=== PATIENT | male | born 1975 | race Caucasian/White ===

== ENCOUNTER 2025-01-20 13:48 | Emergency (ER) | payer MEDICAID ==
[~2025-01-20] VITALS: Ht 167.6 cm; Wt 81.0 kg
[2025-01-20 14:02] VITALS: O2SAT 96
[2025-01-20 16:53] LABS: CLARITY URINE CLEAR (CLEAR); COLOR URINE YELLOW (YELLOW); GLUCOSE URINE NEGATIVE (NEGATIVE); KETONES URINE TRACE (NEGATIVE); LEUKOCYTE ESTERASE URINE NEGATIVE (NEGATIVE); NITRITE URINE NEGATIVE (NEGATIVE); OCCULT BLOOD URINE 2+ (NEGATIVE); PH URINE 5.5 (4.5-8.0); PROTEIN URINE TRACE (NEGATIVE); SPECIFIC GRAVITY URINE 1.024 (1.005-1.030); UROBILINOGEN URINE 0.2 E.U./dL (0.2-1.0)
[2025-01-20 17:14] LABS: BACTERIA URINE TRACE; SQUAMOUS EPITHELIAL CELL URINE 1+ /lpf (RARE/1+); WBC URINE 0-2 /hpf (0-2)
[2025-01-20 18:42] LABS: BASOPHILS % 0.6 % (0.0-2.0); EOSINOPHILS % 0.8 % (0.0-5.0); HEMATOCRIT. 44.3 % (42.0-52.0); HEMOGLOBIN. 14.9 g/dL (14.0-18.0); LYMPHOCYTES % 17.3 % (20.0-50.0); MEAN PLATELET VOLUME 7.7 fl (7.4-10.4); MONOCYTES % 6.3 % (2.0-8.0); NEUTROPHILS % 75.0 % (40.0-76.0); PLATELET 361 x1000/uL (130-400); RED BLOOD CELL COUNT 5.22 mill/uL (4.7-6.1); RED CELL DISTRIBUTION WIDTH 14.6 % (11.6-14.6)
[2025-01-20 18:57] LABS: CREATININE 0.9 mg/dL (0.6-1.3)
[2025-01-20 18:58] LABS: TROPONIN I HIGH SENSITIVITY 4 ng/L (3.0-53); UREA NITROGEN BLOOD 9 mg/dL (9-23)
[2025-01-20 18:59] LABS: ASPARTATE AMINOTRANSFERASE 27 IU/L (<34)
[2025-01-20 19:00] LABS: BILIRUBIN DIRECT 0.1 mg/dL (<=3.0); BILIRUBIN TOTAL 0.5 mg/dL (0.1-1.0); PROTEIN TOTAL 7.7 g/dL (6.0-8.3)
[2025-01-20] MEDS ORDERED: CEPH500C2 MT (20:59)
[2025-01-20 21:05] VITALS: BP 134/86; PULSE 79; RESP 14; TEMP 37.2; O2SAT 100
== END 2025-01-20 21:11 | disposition home or self-care (01) ==
LOC: ER 13:48
DX: N39.0 Urinary tract infection, site not specified (principal); I10 Essential (primary) hypertension; R51.9 Headache, unspecified; I49.3 Ventricular premature depolarization
CPT/HCPCS: 36415; 74176; 80048; 80076; 80320; 81003; 82140; 83735; 84484; 85025; 93005; 99284; G0480